=== PATIENT | female | born 1980 | race African-American/Black ===

== ENCOUNTER 2016-08-11 21:05 | Emergency (ER) | payer OTHER ==
--- NOTE | ~2016-08-11 | CR21 ---
[facility] A Service of [facility] & [facility] RADIOLOGY TEXT RESULTS PATIENT: LAKHWINDER SIMS LOCATION: [facility] : 84 UNIT #: [id number] AGE: [address]: GEOFF COLES APRN SEX: F ORDER DR: [id number] [facility] [address] [place], [place] [address] [id number] E MR#: [id number] Acc #: [id number] NAME: LAKHWINDER SIMS. : 1980 SEX: F STUDY DATE/TIME: 08/12/2016 2:09 UNIT: [facility] ROOM: STUDY DESCRIPTION: CR Ankle Min 3 Views Rt Attending Physician: Geoff Coles Aprn Ordering Physician: Geoff Coles Aprn [facility] REPORT This report is preliminary unless electronic signature is present EXAM Right ankle series, 08/12/2016. HISTORY 36-year-old female in the ED complaining of right foot and ankle pain and swelling beginning about 2 days ago. No reported acute injury. TECHNIQUE Three-view right ankle series. FINDINGS The examination is negative. No fracture, arthropathy, or other osseous abnormality is demonstrated. IMPRESSION Negative right ankle series. Dictated by... Calvin Montes M.D. THIS IS AN ELECTRONICALLY VERIFIED REPORT Calvin Montes M.D. at 08/12/2016 9:56 PM DOLLYW/chacorta TD: 08/12/2016 10:56 JOB #: [id number] MEDICAL IMAGING REPORT Page 1 of 1 COPY
--- NOTE | ~2016-08-11 | CR127 ---
[facility] A Service of [facility] & [facility] RADIOLOGY TEXT RESULTS PATIENT: LAKHWINDER SIMS LOCATION: [facility] : 84 UNIT #: [id number] AGE: [address]: GEOFF COLES APRN SEX: F ORDER DR: [id number] [facility] [address] [place], [place] [address] [id number] E MR#: [id number] Acc #: [id number] NAME: LAKHWINDER SIMS. : 1980 SEX: F STUDY DATE/TIME: 08/12/2016 2:10 UNIT: [facility] ROOM: STUDY DESCRIPTION: CR Foot Complete Min 3 View Rt Attending Physician: Geoff Coles Aprn Ordering Physician: Geoff Coles Aprn Primary Care Physician: [facility] RE[facility] This report is preliminary unless electronic signature is present EXAM Right foot series, 08/12/2016. HISTORY 36-year-old female in the ED complaining of a 2-day history of right foot and ankle pain and swelling. No reported acute injury. TECHNIQUE Three-view right foot series. FINDINGS The examination is negative. No fracture, dislocation, arthropathy or other osseous abnormality is demonstrated. No evidence of stress fracture. IMPRESSION Negative right foot series. Dictated by... Calvin Montes M.D. THIS IS AN ELECTRONICALLY VERIFIED REPORT Calvin Montes M.D. at 08/12/2016 9:56 PM DOLLYW/chacorta TD: 08/12/2016 10:57 JOB #: [id number] MEDICAL IMAGING REPORT Page 1 of 1 COPY
[~2016-08-11 21:05] MED LIST: ADVAIR 5001 DISK W/D PO; ALBUTEROL 0.5ML INH; ALBUTEROL17 GM; ALBUTEROL17 GM INH; ALBUTEROL17 GM NEB; AMITRYPTYLINE; BACTRIM DS TABL1 TA1 PO; CLONAZEPAM0.5 MG PO; DEPAKOTE PO; DICLOFENAC PO; DICLOFENAC SODI25 MG PO; DIFLUCAN PO; DOXYCYCLINE PO; FIORICET W/CODE1 CAP PO; FIORINAL 50-321 EACH PO; FLEXERIL10 MG PO; HYDROCHLOROTHIA25 MG PO; IBUPROFEN800 MG; IBUPROFEN800 MG PO; LAMICTAL PO; LEXAPRO PO; LORTAB 10-5001 EACH PO; LORTAB 5/500 TA1 TA1 PO; NAPROXEN PO; NEURONTIN PO; PHENERGAN PO; PHENERGAN25 MG PO; PROZAC PO; REMERON PO; REMERON45 MG PO; SEASONALE1 BLIST PA; SEROQUEL PO; STERAPRED5 MG/DOSE1 PO; TOPAMAX; TOPAMAX PO; TOPAMAX50 MG PO; VICODIN 5/500 T1 TAB PO; VOLTAREN75 MG PO; Z-PACK PO
== END 2016-08-12 03:20 | disposition home or self-care (01) ==
LOC: CED 21:05
DX: M25.571 Pain in right ankle and joints of right foot (principal); G89.29 Other chronic pain; I10 Essential (primary) hypertension; F41.9 Anxiety disorder, unspecified; Z79.899 Other long term (current) drug therapy; Z91.040 Latex allergy status; Z88.8 Allergy status to other drugs, medicaments and biological substances
CPT/HCPCS: 73610; 73630; 99283; J1885